=== PATIENT | female | born 1945 | race Caucasian/White ===

== ENCOUNTER → 2016-06-03 | Outpatient (CLI) | payer MEDICARE ==
[~2016-06-03] MED LIST: ASA CHILDREN'S81 MG PO; CALCIUM600 MG PO; CYMBALTA60 MG PO; FLEXERIL-DPS10 MG PO; PERCOCET 5 DPS1 TAB PO; PRAVACHOL10 MG PO; PRILOSEC DPS20 MG PO; SYNTHROID25 MCG PO; VITAMIN D350000 UNIT PO; ZANAFLEX4 MG PO
== END | disposition home or self-care (01) ==
LOC: RAD.S 11:04
DX: Z12.31 Encounter for screening mammogram for malignant neoplasm of breast (principal)